=== PATIENT | male | born 1985 | race Caucasian/White ===

== ENCOUNTER 2022-07-13 18:10 | Emergency (ER) | payer BC, OTHER ==
[2022-07-13 18:19] VITALS: BP 148/95; PULSE 103; RESP 20; TEMP 98; BMI 36.1
[2022-07-13] MEDS ORDERED: KETOROLAC TROMETHAMINE 30 MG/1 ML VIAL IM ONE (19:15)
[2022-07-13] MEDS ORDERED: KETOROLAC TROMETHAMINE 30 MG/1 ML VIAL ONE (19:33)
[2022-07-13] MEDS ORDERED: ONDANSETRON *ODT* 4 MG TABLET SL ONE (20:06)
[2022-07-13] MEDS ORDERED: DEXAMETHASONE SOD PHOSPHATE 10 MG/1 ML VIAL IM ONE (20:06)
[2022-07-13] MEDS ORDERED: DEXAMETHASONE SOD PHOSPHATE 10 MG/1 ML VIAL ONE (20:34)
[2022-07-13] MEDS ORDERED: diazePAM 5 MG TABLET PO ONE (21:00)
== END 2022-07-13 21:51 | disposition home or self-care (01) ==
LOC: JER 18:10 → JERFT 18:10 → JER 21:51
PROC: 3E023GC Introduction of Other Therapeutic Substance into Muscle, Percutaneous Approach (ICD-10-PCS; principal; 2022-07-13)
PROC: 3E0233Z Introduction of Anti-inflammatory into Muscle, Percutaneous Approach (ICD-10-PCS; 2022-07-13)
DX: S39.012A Strain of muscle, fascia and tendon of lower back, initial encounter (principal); X50.0XXA Overexertion from strenuous movement or load, initial encounter
CPT/HCPCS: 72131-TC; 99284-25; J1100

== ENCOUNTER 2023-12-14 07:08 | Emergency (ER) | payer BC, OTHER ==
[2023-12-14 07:43] VITALS: RESP 20; TEMP 98.8; BMI 37.0
[2023-12-14] MEDS ORDERED: amLODIPine BESYLATE 10 MG TABLET (FP) ONE (08:13)
[2023-12-14] MEDS: amLODIPine BESYLATE 10 MG TABLET (FP) PO ONE (08:16)
[2023-12-14] MEDS ORDERED: METHOCARBAMOL 500 MG TABLET ONE (08:46)
[2023-12-14] MEDS ORDERED: ACETAMINOPHEN 500 MG TABLET (FP) ONE (08:47)
[2023-12-14] MEDS: ACETAMINOPHEN 500 MG TABLET (FP) PO ONE (08:51)
[2023-12-14] MEDS: METHOCARBAMOL 500 MG TABLET PO ONE (08:51)
[2023-12-14 09:23] LABS: BASO % 1.3 % (0-2.0); EOS % 2.4 % (0-4.5); HEMATOCRIT 47.6 % (35.4-49); HEMOGLOBIN 15.7 GM/dL (11.7-16.9); LYMPH % 12.7 % (8-40); MCH 29.5 pg (25.7-33.7); MCHC 33.1 g/dl (32.0-35.9); MEAN CELL VOLUME 89.1 fl (80-96); MEAN PLT VOLUME 8.5 fl (7.5-11.1); MONO % 10.7 % (3.8-10.2); NEUT % 72.9 % (42.8-82.8); PLATELET COUNT 228 10^3/uL (134-434); RBC 5.34 M/mm3 (4.00-5.60); RDW 13.6 % (11.9-15.9); WHITE BLOOD COUNT 8.1 K/mm3 (4.0-10.0)
[2023-12-14 09:41] LABS: POTASSIUM 4.1 mmol/L (3.5-5.1)
[2023-12-14 09:43] LABS: CALCIUM 9.3 mg/dL (8.5-10.1)
[2023-12-14 09:44] LABS: ALBUMIN 4.2 g/dl (3.4-5.0); BLOOD UREA NITROGEN 10.2 mg/dL (7-18)
[2023-12-14 09:47] LABS: CREATININE 0.7 mg/dL (0.55-1.3)
[2023-12-14 09:48] LABS: BILIRUBIN,TOTAL 1.5 mg/dL (0.2-1); TOT PROT 9.1 g/dl (6.4-8.2)
[2023-12-14 11:05] VITALS: BP 144/101; PULSE 89
[2023-12-14 12:47] LABS: HIV INTERPRETATION NEGATIVE (NEGATIVE)
== END 2023-12-14 11:05 | disposition home or self-care (01) ==
LOC: JERFT 07:08 → JER 07:08 → JERFT 11:05
DX: M54.50 Low back pain, unspecified (principal); R94.31 Abnormal electrocardiogram [ECG] [EKG]; X50.1XXA Overexertion from prolonged static or awkward postures, initial encounter
CPT/HCPCS: 36415; 72131-TC; 80053; 84484; 85025; 86803; 87389; 93005; 93010; 99285-25

== ENCOUNTER 2024-11-04 13:13 | Inpatient (IN) | payer BC, OTHER ==
[2024-11-04 13:34] VITALS: BMI 36.3
[2024-11-04] MEDS ORDERED: METHOCARBAMOL 500 MG TABLET ONE (14:41)
[2024-11-04] MEDS ORDERED: LIDOCAINE 4% PATCH TP ONE (14:42)
[2024-11-04] MEDS ORDERED: KETOROLAC TROMETHAMINE 15 MG/ML VIAL ONE (14:42)
[2024-11-04] MEDS ORDERED: ACETAMINOPHEN INJECTION 100 ML ONE (14:42)
[2024-11-04] MEDS: LIDOCAINE 4% PATCH TP ONE (14:55)
[2024-11-04] MEDS: METHOCARBAMOL 750 MG TAB PO ONE (14:55)
[2024-11-04] MEDS: KETOROLAC TROMETHAMINE 15 MG/ML VIAL IVPUSH ONE (14:58)
[2024-11-04] MEDS: ACETAMINOPHEN 1000 MG/100 ML BAG IVPB ONE (15:01)
[2024-11-04 15:10] LABS: ABSOLUTE IMMATURE GRANULOCYTES 0.03 x10^3/uL (0.0-0.031); BASOPHILS # 0.11 x10^3/uL (0.01-0.08); EOSINOPHIL % 3.8 % (0.8-7.0); EOSINOPHILS # 0.34 x10^3/uL (0.04-0.54); MCHC 33.8 g/dl (32.3-36.5); MEAN CELL VOLUME 87.9 fl (79.0-92.2); MEAN PLT VOLUME 9.9 fl (9.4-12.4); MONOCYTE # 0.83 x10^3/uL (0.30-0.82); MONOCYTE % 9.3 % (5.3-12.2); RDW 14.1 % (12.0-15.6)
[2024-11-04] MEDS: KETOROLAC TROMETHAMINE 30 MG/1 ML VIAL IM ONE (15:16)
[2024-11-04 15:27] LABS: GLUCOSE,RANDOM 103.0 mg/dL (74-106)
[2024-11-04 15:28] LABS: TOT PROT 8.5 g/dl (6.4-8.2)
[2024-11-04 15:29] LABS: CO2 21.0 mmol/L (21-32)
[2024-11-04 15:30] LABS: ALK PHOS 200.0 U/L (40-150)
[2024-11-04 15:33] LABS: CREATININE 0.61 mg/dL (0.55-1.3); SGOT/AST 138.0 U/L (5-34); SGPT/ALT 88.0 U/L (0-55)
[2024-11-04 15:51] LABS: HCV DIAGNOSTIC IN-HOUSE W/RFLX NON-REACTIVE (NONREACTIVE); HIV INTERPRETATION NEGATIVE (NEGATIVE)
[2024-11-04] MEDS: morphine CARPU-JECT 4 MG/1 ML DISP.SYRIN IVPUSH ONE (19:33)
[2024-11-04] MEDS ORDERED: morphine CARPU-JECT 4 MG/1 ML DISP.SYRIN IVPUSH PRN (20:33)
[2024-11-04] MEDS ORDERED: ATORVASTATIN CA 40 MG TABLET (FP) ONE (22:02)
[2024-11-04] MEDS ORDERED: ACETAMINOPHEN 500 MG TABLET (FP) ONE (22:03)
[2024-11-04] MEDS: INSULIN ASPART SLIDING SCALE (NOVOLOG) 1 VIAL SQ SCH (22:42)
[2024-11-04] MEDS: ACETAMINOPHEN 500 MG TABLET (FP) PO SCH (22:42)
[2024-11-04] MEDS: ATORVASTATIN CA 40 MG TABLET (FP) PO SCH (22:42)
[2024-11-05] MEDS: LIDOCAINE PATCH REMOVAL MC ONE ×2 (00:28→02:05)
[2024-11-05] MEDS: KETOROLAC TROMETHAMINE 15 MG/ML VIAL IVPUSH PRN (03:22)
[2024-11-05 06:33] LABS: ABSOLUTE IMMATURE GRANULOCYTES 0.07 x10^3/uL (0.0-0.031); BASOPHILS # 0.11 x10^3/uL (0.01-0.08); EOSINOPHIL % 8.3 % (0.8-7.0); EOSINOPHILS # 0.63 x10^3/uL (0.04-0.54); MCHC 32.5 g/dl (32.3-36.5); MEAN CELL VOLUME 90.5 fl (79.0-92.2); MEAN PLT VOLUME 10.1 fl (9.4-12.4); MONOCYTE # 0.85 x10^3/uL (0.30-0.82); MONOCYTE % 11.2 % (5.3-12.2); RDW 14.1 % (12.0-15.6)
[2024-11-05 06:59] LABS: GLUCOSE,RANDOM 102.0 mg/dL (74-106); TOT PROT 8.1 g/dl (6.4-8.2)
[2024-11-05 07:00] LABS: CO2 25.0 mmol/L (21-32)
[2024-11-05 07:04] LABS: SGPT/ALT 91.0 U/L (0-55)
[2024-11-05 07:05] LABS: CREATININE 0.71 mg/dL (0.55-1.3); SGOT/AST 145.0 U/L (5-34)
[2024-11-05 07:17] LABS: ALK PHOS 184.0 U/L (40-150)
[2024-11-05] MEDS: KETOROLAC TROMETHAMINE 15 MG/ML VIAL IVPUSH SCH (08:15)
[2024-11-05] MEDS ORDERED: ENOXAPARIN NA (PORCINE) 40 MG/0.4 ML DISP.SYRIN SQ SCH (10:00)
[2024-11-05] MEDS ORDERED: HYDROCHLOROTHIAZIDE 12.5 MG CAPSULE (FP) PO SCH (10:00)
[2024-11-05] MEDS: HYDROCHLOROTHIAZIDE 12.5 MG CAPSULE (FP) PO SCH (11:37)
[2024-11-05] MEDS: amLODIPine BESYLATE 10 MG TABLET (FP) PO SCH (11:37)
[2024-11-05] MEDS: METHOCARBAMOL 500 MG TABLET PO SCH (14:11)
[2024-11-05] MEDS: LACTATED RINGERS SOLUTION 1,000 ML/1,000 ML INFUS.BAG IV SCH (14:57)
[2024-11-05] MEDS: PREGABALIN 50 MG CAPSULE PO SCH (15:47)
[2024-11-05] MEDS: morphine CARPU-JECT 2 MG/1 ML DISP.SYRIN IVPUSH PRN (20:49)
[2024-11-06] MEDS ORDERED: LIDOCAINE HCL 1%, 10 MG/ML (20ML VIAL) ONE (09:37)
[2024-11-06] MEDS ORDERED: DEXAMETHASONE SOD PHOSPHATE 10 MG/1 ML VIAL ONE ×3 (09:38→16:33)
[2024-11-06] MEDS ORDERED: BUPIVACAINE HCL/PF 0.25% (2.5MG/ML) 10 ML VIAL ONE (15:24)
[2024-11-07] MEDS: DEXAMETHASONE SOD PHOSPHATE 10 MG/1 ML VIAL IM ONE (07:18)
[2024-11-07] MEDS: LIDOCAINE HCL 0.5%, 5 MG/1 ML (50mL MDV) SQ ONE (07:19)
[2024-11-07] MEDS: KETOROLAC TROMETHAMINE 30 MG/1 ML VIAL IM ONE (07:19)
[2024-11-07 09:18] VITALS: BP 145/88; PULSE 96; RESP 20; TEMP 98.1
== END 2024-11-07 09:30 | disposition home or self-care (01) | DRG 552 ==
LOC: JER 13:13 → JERBED 22:01 → J7W 23:05
PROVIDERS: ADMIT Internal Medicine; ATTEND Internal Medicine
DX: M54.31 Sciatica, right side (principal); I10 Essential (primary) hypertension; E78.5 Hyperlipidemia, unspecified; E11.9 Type 2 diabetes mellitus without complications
CPT/HCPCS: 36415; 72131-TC; 72148-TC; 76000-TC-FY; 80053; 82962; 82977; 83036; 83735; 84100; 85025; 86803; 87389; 97116-GP; 97162-GP; 99285-25; J1100